=== PATIENT | male | born 1940 | race Caucasian/White ===

== ENCOUNTER 2020-07-15 13:42 | Inpatient (IN) | payer MEDICARE, OTHER, SELFPAY ==
[2020-07-15 14:04] VITALS: BP 129/65; PULSE 89; RESP 18; TEMP 36.8; O2SAT 96; BMI 23.1
[2020-07-15 15:02] VITALS: O2SAT 96
--- NOTE | 2020-07-15 18:29 | NURSING ---
and son aware of visitation hours and team on Tuesday
[2020-07-15 19:36] VITALS: BP 158/81; PULSE 84; RESP 18; TEMP 36.9; O2SAT 94
[2020-07-15 21:36] VITALS: BP 158/81; PULSE 84
[2020-07-15] MEDS: Pregabalin 75 MG Capsule PO (21:36)
[2020-07-15] MEDS: Acetaminophen 325 MG Tablet 650 MG PO (21:36)
[2020-07-15] MEDS: Metoprolol(XL)Succ 50 MG Tablet PO (21:36)
[2020-07-15 22:00] VITALS: PULSE 18; RESP 16; O2SAT 94
--- NOTE | 2020-07-15 22:08 | HP.PCM_ITS ---
HPI - General General Date of Admission: 07/15/20 HPI Narrative 07/07/2020 DEAN ROY, is a 80 Male with below past medical history hospitalized at [facility] with chronic subdural hematoma. He had fall, had progressive expressive aphasia over the past 6 weeks, right leg weakness. 07/12/2020 Neurosurgery performed left craniotomy for subdural hematoma with placement of subdural drain. Post operative course unknown due to limited medical records. 07/15/2020 Admit to for > 3 hours rehabilitation, strengthening, prior to discharge home with . [facility] Medical History (Updated 07/15/20 @ 22:[address] Cameron Villa MD) Chronic kidney disease Concussion Fall Gastroenteritis Hypertension Home Medications acetaminophen [Tylenol] 650 mg PO Q6H PRN PRN 07/15/20 [History Last Taken U nknown] cholecalciferol (vitamin D3) [Vitamin D3] 1,000 unit PO DAILY 07/15/20 [History Last Taken Unknown] clonazepam [Klonopin] 1 mg PO QHS PRN PRN 07/15/20 [History Last Taken Unknown] hydrocodone-acetaminophen [Lyme] 1 tab PO Q6H PRN 07/15/20 [History Last Taken Unknown] ketorolac [Acular] 1 drp OPHTHALMIC (EYE) BID PRN PRN 07/15/20 [History Last Taken Unknown] losartan-hydrochlorothiazide [Hyzaar] 1 tab PO DAILY 07/15/20 [History Last Taken Unknown] metoprolol succinate 50 mg PO BID 07/15/20 [History Last Taken Unknown] multivitamin 1 tab PO DAILY 07/15/20 [History Last Taken Unknown] potassium chloride [Micro-K] 10 meq PO DAILY 07/15/20 [History Last Taken Unknown] pregabalin [Lyrica] 75 mg PO BID 07/15/20 [History Last Taken Unknown] Allergy/AdvReac Type Severity Reaction Status Date / Time doxycycline Allergy Nausea/Vom/ Verified 07/15/20 14:37 Diarrhea pramipexole Allergy Nausea/Vom/ Verified 07/15/20 14:37 Diarrhea ropinirole Allergy Nausea/Vom/ Verified 07/15/20 14:37 Diarrhea tetracycline Allergy Nausea/Vom/ Verified 07/15/20 14:37 Diarrhea Family History (Updated 07/15/20 @ 15:27 by Ela Brandt) Mother Heart disease Father Heart disease Brother Colon cancer Surgical History (Updated 07/15/20 @ 15:25 by Ela Brandt) H/O cervical spine surgery H/O colectomy H/O hernia repair Hx of rotator cuff surgery Social History (Updated 07/15/20 @ 22:[address] Cameron Villa MD) adopted: No household members: spouse housing: house current occupational status: retired current occupation: Orthopedic surgeon. Smoking Status: Former smoker alcohol intake: current details: Previous alcoholic. ROS Constitutional Constitutional: Denies chills, fever(s) or weight gain ENT HEENT: Denies headache(s), nasal congestion or nasal discharge Cardiovascular Cardiovascular: Denies chest pain or palpitations Respiratory/Chest Respiratory/Chest: Denies cough, excessive phlegm production or shortness of breath with exertion Gastrointestinal Gastrointestinal: Denies abdominal pain, nausea or vomiting Genitourinary Genitourinary: Denies dysuria Musculoskeletal Musculoskeletal: Denies joint pain or joint swelling Integumentary Integumentary: Denies rash or wounds Neurologic Neurologic: Reports weakness; Denies numbness or tingling Psychiatric Psychiatric: Reports auditory hallucinations; Denies anxiety, depression, homicidal ideation or suicidal ideation Vital Signs Vital Signs Vital Signs: 07/15/20 14:04 07/15/20 15:02 07/15/20 16:40 Temperature 98.2 F Temperature Source Oral Pulse Rate 89 Pulse Strength Normal (2+) Respiratory Rate 18 Blood Pressure 129/65 H Blood Pressure Mean 86 Blood Pressure Source Monitor Blood Pressure Position Sitting Blood Pressure Location Left Arm Pulse Ox 96 96 Oxygen Delivery Method Room Air Room Air 07/15/20 19:36 07/15/20 20:33 07/15/20 21:36 Temperature 98.5 F Temperature Source Oral Pulse Rate 84 84 Pulse Strength Normal (2+) Respiratory Rate 18 Blood Pressure 158/81 H 158/81 H Blood Pressure Mean 106 Blood Pressure Source Monitor Blood Pressure Position Sitting Blood Pressure Location Left Arm Pulse Ox 94 Oxygen Delivery Method Room Air Physical Exam Const alert and oriented x3 General Appearance: cooperative HEENT normocephalic Eyes PERRL and EOMs intact bilaterally Neck supple, no JVD and no carotid bruits Resp normal respiratory effort, normal air movement and clear to auscultation bilaterally Cardio regular rate and regular rhythm GI normal to inspection, nondistended, normoactive bowel sounds, non-tender and non-distended Extremity normal capillary refill General Extremity: Negative for edema Skin no rashes or lesions noted General Skin Exam: no breakdown Psych affect normal Appearance: appropriate Assessment & Plan Assessment/Plan (1) Debility: Status: Acute Code(s): R53.81 - Other malaise (2) Fall: Status: Acute Code(s): W19.XXXA - Unspecified fall, initial encounter (3) Expressive aphasia: Status: Acute Code(s): R47.01 - Aphasia (4) Concussion: Status: Acute Code(s): S06.0X9A - Concussion with loss of consciousness of unspecified duration, initial encounter (5) Chronic subdural hematoma: Status: Chronic Code(s): I62.03 - Nontraumatic chronic subdural hemorrhage (6) Right leg weakness: Status: Acute Code(s): R29.898 - Other symptoms and signs involving the musculoskeletal system (7) Chronic kidney disease: Status: Chronic Code(s): N18.9 - Chronic kidney disease, unspecified (8) Hypertension: Status: Chronic Code(s): I10 - Essential (primary) hypertension (9) Neuropathic pain: Status: Acute Code(s): M79.2 - Neuralgia and neuritis, unspecified (10) Hypogonadism: Status: Acute (11) Erectile dysfunction: Status: Acute Code(s): N52.9 - Male erectile dysfunction, unspecified Plan: 80 year old male with below past medical history hospitalized for expressive aphasia, right leg weakness due to chronic subdural hematoma, underwent left craniotomy for subdural hematoma with placement of subdural drain, admitted to for > 3 hours daily of rehabilitation, strengthening, prior to discharge home with . * Debility - PT/OT. * Aphasia - ST. * Pain - Tylenol 650MG Q6H PRN, Hydrocodone 1 tablet Q6H PRN. * Bowel - Senna/colace 2 tablets BID, MOM 30ML daily PRN, Dulcolax 10MG [place] daily PRN. * Vitamin D deficiency - D3 1000IU daily. * Insomnia - Clonazepam 1MG QHS PRN. * Hypertension - Metoprolol succinate 50MG BID, Losartan 100MG daily. * Nutrition - MVI daily. * Hypokalemia - KCL 10MEQ daily. * Neuropathic pain - Lyrica 75MG BID.
[2020-07-16 06:04] LABS: Absolute Lymphocyte Count 1.05 X10^3/uL (0.83-4.51); Absolute Neutrophil Count 3.2 X10^3/uL (2.0-7.7); Basophil# 0.03 X10^3/uL; Basophil% 0.6 % (0-1); Eosinophil# 0.17 X10^3/uL; Eosinophils% 3.3 % (0-5); Hematocrit 43.9 % (40-54); Hemoglobin 14.8 g/dL (13.0-16.5); Lymphocyte # 1.05 X10^3/ul (0.83-4.51); Lymphocyte % 20.6 % (19-41); Mean Corp Hgb Conc 33.7 g/dL (32-36); Mean Corpuscular Hgb 32.2 pg (27.0-32.0); Mean Corpuscular Volume 95.6 fL (80-94); Mean Platelet Vol. 9.6 fl (6.2-12.0); Monocyte# 0.66 X10^3/uL; NRBC Flagged by Analyzer 0 % (0-5); Neutrophil # 3.17 X10^3/uL (2.7-7.7); Neutrophil % 62.3 % (47-70); Platelet Count 191 K/mm3 (150-450); RBC Distribution Width CV 12.5 % (11.6-14.6); RBC Distribution Width SD 43.8 fl (35.1-43.9); Red Blood Count 4.59 M/mm3 (4.6-6.2); White Blood Count 5.1 K/mm3 (4.4-11.0)
[2020-07-16 06:36] LABS: AST(SGOT) 14 U/L (15-37); Alanine Aminotransfer ALT/SGPT 19 U/L (16-61); Albumin, Serum 3.5 g/dL (3.2-5.0); Alkaline Phosphatase 73 U/L (45-117); Anion Gap 6 (5-15); BUN 20 mg/dL (7-18); BUN/Creat Ratio 23.3 RATIO (10-20); Calcium,Total 9.3 mg/dL (8.5-10.1); Chloride 102 mmol/L (98-107); Creatinine, Serum 0.86 mg/dL (0.70-1.30); EST Glomerular Filtration Rate 91 mL/min (>60); Est Glom Filt Rate - Afr Amer 111 mL/min (>60); Estimated Creatinine Clearance 70.79 ml/min; Globulin 3.5 g/dL (2.2-4.2); Glucose 102 mg/dL (74-106); Magnesium 2.1 mg/dL (1.6-2.6); Phosphorus 3.2 mg/dL (2.5-4.9); Potassium 3.6 mmol/L (3.5-5.1); Sodium Level 136 mmol/L (136-145)
[2020-07-16 07:35] VITALS: O2SAT 97
[2020-07-16 08:13] VITALS: PULSE 72
[2020-07-16] MEDS: hydroCHLOROthiazide 25 MG Tablet PO (08:13)
[2020-07-16] MEDS: Cholecalciferol (VIT D3) 25 MCG TABLET (1,000 UNITS) PO (08:13)
[2020-07-16] MEDS: Pregabalin 75 MG Capsule PO ×2 (08:13→20:58)
[2020-07-16] MEDS: Metoprolol(XL)Succ 50 MG Tablet PO ×2 (08:13→20:57)
[2020-07-16] MEDS: Losartan Potassium 100 MG Tablet PO (08:13)
[2020-07-16] MEDS: Potassium Chloride Oral Tablet 10 MEQ PO (08:13)
[2020-07-16] MEDS: Multivitamins,Therapeutic Tablet 1 TABLET PO (08:13)
[2020-07-16] MEDS: Acetaminophen 325 MG Tablet 650 MG PO ×3 (08:18→20:58)
[2020-07-16 08:40] VITALS: BP 145/80; PULSE 72; RESP 16; TEMP 36.6; O2SAT 94
--- NOTE | 2020-07-16 16:06 | NT.THERAPY_ITS ---
Nutrition Therapy Report - History Nutrition Services has been consulted to:: Manage nutrient details of diet order Current diet / nutrition support order:: Regular - Anthropometric Measurements Height:: 5 ft 9 in Weight:: 67.3 kg Body Mass Index (BMI):: 21.9 - Relevant Labs Relevant Labs:: RBC 4.59 M/mm3 (4.6-6.2) L 07/16/20 05:35 MCV 95.6 fL (80-94) H 07/16/20 05:35 MCH 32.2 pg (27.0-32.0) H 07/16/20 05:35 [place] % (Auto) 13.0 % (0-10) H 07/16/20 05:35 BUN 20 mg/dL (7-18) H 07/16/20 05:35 BUN/Creatinine Ratio 23.3 RATIO (10-20) H 07/16/20 05:35 AST 14 U/L (15-37) L 07/16/20 05:35 - Assessment Food / Nutrition-Related History:: Recently hospitalized at [facility] 07/07 w/ chronic subdural hematoma. States poor intake during hospitalization d/t prolonged NPO status- once progressed to PO foods states disliked taste of hospital food, would buy pt L&D meals, pt notes intake improvement to fair. Notes nausea d/t narcotics during this time w/ no emesis. States profuse diarrhea d/t on two stool softeners at [facility]. Pt notes return of good appetite/intake- states the food here is way better than at [facility]- consuming 75-100% of meals served since admin. States UBW -165-170 lbs. Notes unintentional wt loss x 9 days during recent hospitalization w/ UBW 165 lbs- CBW 156.7lbs indicating 10% wt loss- no wt hx per EMR. Pt attributes wt loss to prolonged NPO status & decreased intake during recent hospitalization. - Nutrition Diagnosis Problem / Etiology / Signs & Symptoms (PES):: Severe malnutrition in the context of acute disease/injury RT inadequate oral intake AEB unintentional wt loss 10% x 9 days, consuming </=50% energy intake compared to estimated energy needs >/=5 days. Evidence of Malnutrition Exists:: Yes Severe PCM:: Acute Illness - Nutrition Intervention Nutrition Prescription:: [id number] calories, 60-70 g protein - Food / Nutrient Delivery Interventions Nutrition support ordered as / adjusted to:: Regular diet. Ensure pudding w/ Lunch; Magic Cup w/ dinner. Nutrition education provided?: No - MNT Monitoring Further MNT monitoring and evaluation required?: Yes MNT Follow-up in:: 7-9 days
[2020-07-16 16:11] VITALS: BMI 21.9
--- NOTE | 2020-07-16 19:19 | PCM.RU.PYE ---
Admission Information Primary Diagnosis:: Chronic subdural hematoma status post craniotomy. Status Changes from Prescreening?: No changes Identified Actual Problem List:: Falls, Pain, ALteration in Cmfrt, Cognitve Impr/Memory Loss, Alteration in Sleep, Mobility Impaired and Self Care Deficit Potential Problem List:: DVT, Bleeding, Infection, UTI, Aspiration, Falls, Skin Integrity and Depression Risk of Complications DVT: RENATA Hose Bleeding: Monitor Lab Values Infection: Clinical Staff to Monitor for S/S of infection: and S/S of infection include fever, redness, warmth, etc. Urinary Tract Infection: Monitor for frequency, burning, discomfort, or incontinence. and Nursing will obtain urine sample for urinalysis and C&S when ordered. Aspiration: Clinical staff will monitor for coughing, drooling, congestion., Speech will evaluate swallowing and dsyphasia. and Nursing will monitor patient swallowing during meals. Falls: Patient will be evaluated for Fall Precautions and Patient will be placed on Fall Precautions as indicated per protocol. Skin Breakdown: Nursing will assess skin daily using assessment tool. and Nursing will place on Skin Breakdown Precautions as indicated. Pain: Clinical staff will assess patient's pain level per protocol., Medications will be given, if needed, and the pain level reassessed. and Other methods: Massage, distraction, decrease stimulus, etc. used PRN. Plan of Care Patient requires physician specializing in physical medicine and rehab oversight to provide close medical supervision of rehab issues including: Pain Management, Sleep Problems, Bowel and Bladder, Medical and co-morbidity Management, Rehabilitation Leadership and Coordination of treatment team Patient needs Physical Therapy: For a minimum of 1 hour and At least 5 out of 7 days Patient needs Physical Therapy to improve:: Mobility, Strengthening, Transfers, Stretching, ROM, Endurance, Stairs, Gait and Balance Patient needs Occupational Therapy: For a minimum of 1 hour and At least 5 out of 7 days Patient needs Occupational Therapy to improve ADL's incl.: Eating, Grooming, Bathing, Dressing, Toileting, Toilet transfers, Community Reintegration, Higher functioning activities, Household tasks, Adaptive Equipment and Other activities as determined Patient requires speech therapy: For a minimum of 1 hour and At least 5 out of 7 days Patient requires speech therapy for: Swallowing, Cognition, Language Skills and Compensatory Strategies Patient requires 24/7 Rehabilitation Nursing for: Pain Issues, Identifying and preventing risk factors, Assisting with ambulation, transfer, and all ADL's, Family teaching, Providing safe environment, Bowel and Bladder Issues, Skin integrity and Medication Management Patient needs [employer]or/ Case Management for: Discharge Planning, Arranging Home Equipment or Services and Family Interventions Patient needs Dietary and Nutrition Services for: Adequate Nutrition, Nutritional Supplements and Nutritional Education Goals Patient will remain: free from falls Patient will perform bed mobility at: Standby Assist. Patient will complete transfers from bed to chair at: Standby Assist. Patient will ambulate: 100 feet (300 feet) and with standby assist Patient will complete upper body dressing at: MOD I level of assist. Patient will complete lower body dressing at: MOD I level of assist. Patient will complete toileting at: Standby Assist. Patient will perform bathing at: Standby Assist. Patient will complete grooming at: Standby Assist. Patient will complete home management skills at: Standby Assist. Patient will achieve: 12 stairs and with standby assist Patient will have pain level of: of 3 or less Patient's skin will: remain intact and free from infection. Patient will receive: adequate nutrition. Discharge Planning Pt Prognosis for Sig. Practical Improv. w/in Reasonable Time: Good Estimated Length of stay (days): 15 Anticipated D/C Destination: Home with Home Health Was Preadmission Assessment Accurate?: Yes
[2020-07-16 20:28] VITALS: BP 113/59; PULSE 66; RESP 16; TEMP 36.5; O2SAT 95
[2020-07-16 20:48] VITALS: PULSE 72; RESP 96; O2SAT 94
[2020-07-16 20:57] VITALS: BP 113/59; PULSE 72
--- NOTE | 2020-07-17 05:44 | NURSING ---
Pt woke up with nausea and requested 4mg Zofran. Hospitalist, Dr Chavez, paged. N/O for 4mg Zofran Q6H/PRN.
[2020-07-17] MEDS: Ondansetron ODT 4 MG Tablet PO (05:49)
[2020-07-17 07:07] VITALS: O2SAT 95
[2020-07-17] MEDS: Pregabalin 75 MG Capsule PO ×2 (08:22→21:48)
[2020-07-17] MEDS: Acetaminophen 325 MG Tablet 650 MG PO ×2 (08:22→20:13)
[2020-07-17 08:23] VITALS: PULSE 71
[2020-07-17] MEDS: Metoprolol(XL)Succ 50 MG Tablet PO ×2 (08:23→21:48)
[2020-07-17] MEDS: Multivitamins,Therapeutic Tablet 1 TABLET PO (08:23)
[2020-07-17] MEDS: Cholecalciferol (VIT D3) 25 MCG TABLET (1,000 UNITS) PO (08:23)
[2020-07-17] MEDS: hydroCHLOROthiazide 25 MG Tablet PO (08:23)
[2020-07-17] MEDS: Losartan Potassium 100 MG Tablet PO (08:23)
[2020-07-17] MEDS: Potassium Chloride Oral Tablet 10 MEQ PO (08:23)
[2020-07-17 08:41] VITALS: BP 149/73; PULSE 71; RESP 18; TEMP 36.7; O2SAT 93
[2020-07-17] MEDS: Senna/Docusate Sodium 1 Tablet 2 TABLET PO (09:17)
--- NOTE | 2020-07-17 19:30 | PN.TCU_ITS ---
Subjective Subjective: Patient seen, examined. He feels he is struggling. I reassured him he is on track and improving. He recalls the chronic subdural hematoma occurred 6 weeks after fall with concussion. He developed right foot slap, expressive aphasia, and did not realize what was going on until he saw his sterile proc tech who sent him to ER. Dominick requested Trazodone for sleep, he states Melatonin has not worked in the past. Objective Data Objective Data Vital Signs: Vital Signs Temp Pulse Resp BP Pulse Ox 98.1 F 71 18 149/73 H 93 07/17/20 08:41 07/17/20 08:41 07/17/20 08:41 07/17/20 08:41 07/17/20 08:41 Oxygen Delivery Method Room Air Weight: 67.3 kg Body Mass Index (BMI) 21.9 Intake & Output: Intake and Output for Last 24 Hours 07/15/20 07/16/20 07/17/20 23:59 23:59 23:59 Intake Total 480 / 480 1160 / 1160 840 / 840 Output Total 450 / 450 950 / 950 250 / 250 Balance 30 / 30 210 / 210 590 / 590 Lab / Micro Data Result Diagrams: 07/16/20 05:35 07/16/20 05:35 Physical Exam Const alert and oriented x3 General Appearance: cooperative HEENT normocephalic Eyes PERRL and EOMs intact bilaterally Neck supple, no JVD and no carotid bruits Resp normal respiratory effort, normal air movement and clear to auscultation bilaterally Cardio regular rate and regular rhythm GI normal to inspection, nondistended, normoactive bowel sounds, non-tender and non-distended Extremity normal capillary refill General Extremity: Negative for edema Skin no rashes or lesions noted General Skin Exam: no breakdown Neuro Neuro Narrative: Right lower extremity weakness. Psych affect normal Appearance: appropriate Assessment & Plan Assessment/Plan (1) Debility: (2) Fall: (3) Expressive aphasia: (4) Concussion: (5) Chronic subdural hematoma: (6) Right leg weakness: (7) Chronic kidney disease: (8) Hypertension: (9) Neuropathic pain: (10) Hypogonadism: (11) Erectile dysfunction: PLAN: 80 year old male with below past medical history hospitalized for expressive aphasia, right leg weakness due to chronic subdural hematoma, underwent left craniotomy for subdural hematoma with placement of subdural drain, admitted to for > 3 hours daily of rehabilitation, strengthening, prior to discharge home with . * Debility - PT/OT. * Aphasia - ST. * Pain - Tylenol 650MG Q6H PRN, Hydrocodone 1 tablet Q6H PRN. * Bowel - Senna/colace 2 tablets BID, MOM 30ML daily PRN, Dulcolax 10MG [place] daily PRN. * Vitamin D deficiency - D3 1000IU daily. * Insomnia - Trazodone 50MG QHS, Clonazepam 1MG QHS PRN. * Hypertension - Metoprolol succinate 50MG BID, Losartan 100MG daily. * Nutrition - MVI daily. * Hypokalemia - KCL 10MEQ daily. * Neuropathic pain - Lyrica 75MG BID. Capacity Capacity Assessment Tool Can the patient make a choice & communicate that choice?: Yes Can the patient understand benefits, risks and alternatives?: Yes Can the patient make a logical, rational choice?: Yes Is the choice the patient makes consistent w/ their values?: Yes Is there an impending, emergent risk to the patient?: No Does the patient have an Advance Directive?: No Is there a Surrogate Available?: Yes i.e. HCPOA: Yes i.e. close relative (spouse, child, parent, sibling)?: Yes
[2020-07-17 19:55] VITALS: BP 147/73; PULSE 75; RESP 18; TEMP 37; O2SAT 96
[2020-07-17] MEDS: traZODone 50 MG Tablet PO (21:00)
[2020-07-17 21:47] VITALS: BP 134/71; PULSE 76
[2020-07-17 21:48] VITALS: BP 134/71; PULSE 76
[2020-07-18] MEDS: Ondansetron ODT 4 MG Tablet PO ×2 (02:13→20:51)
[2020-07-18] MEDS: Cholecalciferol (VIT D3) 25 MCG TABLET (1,000 UNITS) PO (07:57)
[2020-07-18] MEDS: Multivitamins,Therapeutic Tablet 1 TABLET PO (07:57)
[2020-07-18] MEDS: hydroCHLOROthiazide 25 MG Tablet PO (07:57)
[2020-07-18] MEDS: Losartan Potassium 100 MG Tablet PO (07:57)
[2020-07-18] MEDS: Potassium Chloride Oral Tablet 10 MEQ PO (07:57)
[2020-07-18 07:58] VITALS: PULSE 72
[2020-07-18] MEDS: Pregabalin 75 MG Capsule PO ×2 (07:58→20:52)
[2020-07-18] MEDS: Metoprolol(XL)Succ 50 MG Tablet PO ×2 (07:58→20:53)
[2020-07-18 08:07] VITALS: BP 119/71; PULSE 72; RESP 12; TEMP 37.1; O2SAT 94
[2020-07-18] MEDS: Acetaminophen 325 MG Tablet 650 MG PO ×2 (11:20→20:51)
--- NOTE | 2020-07-18 13:32 | PN.TCU_ITS ---
Subjective Subjective: Patient seen, examined. He slept well with Trazodone 50MG at bedtime last night. Objective Data Objective Data Vital Signs: Vital Signs Temp Pulse Resp BP Pulse Ox 98.7 F 72 12 119/71 94 07/18/20 08:07 07/18/20 08:07 07/18/20 08:07 07/18/20 08:07 07/18/20 08:07 Oxygen Delivery Method Room Air Weight: 67.3 kg Body Mass Index (BMI) 21.9 Intake & Output: Intake and Output for Last 24 Hours 07/16/20 07/17/20 07/18/20 23:59 23:59 23:59 Intake Total 1160 / 1160 840 / 840 480 / 480 Output Total 950 / 950 250 / 250 350 / 350 Balance 210 / 210 590 / 590 130 / 130 Lab / Micro Data Result Diagrams: 07/16/20 05:35 07/16/20 05:35 Physical Exam Const alert and oriented x3 General Appearance: cooperative HEENT normocephalic Eyes PERRL and EOMs intact bilaterally Neck supple, no JVD and no carotid bruits Resp normal respiratory effort, normal air movement and clear to auscultation bilaterally Cardio regular rate and regular rhythm GI normal to inspection, nondistended, normoactive bowel sounds, non-tender and non-distended Extremity normal capillary refill General Extremity: Negative for edema Skin no rashes or lesions noted General Skin Exam: no breakdown Neuro Neuro Narrative: Right lower extremity weakness. Psych affect normal Appearance: appropriate Assessment & Plan Assessment/Plan (1) Debility: (2) Fall: (3) Expressive aphasia: (4) Concussion: (5) Chronic subdural hematoma: (6) Right leg weakness: (7) Chronic kidney disease: (8) Hypertension: (9) Neuropathic pain: (10) Hypogonadism: (11) Erectile dysfunction: PLAN: 80 year old male with below past medical history hospitalized for expressive aphasia, right leg weakness due to chronic subdural hematoma, underwent left craniotomy for subdural hematoma with placement of subdural drain, admitted to for > 3 hours daily of rehabilitation, strengthening, prior to discharge home with . * Debility - PT/OT. * Aphasia - ST. * Pain - Tylenol 650MG Q6H PRN, Hydrocodone 1 tablet Q6H PRN. * Bowel - Senna/colace 2 tablets BID, MOM 30ML daily PRN, Dulcolax 10MG [place] daily PRN. * Vitamin D deficiency - D3 1000IU daily. * Insomnia - Trazodone 50MG QHS, Clonazepam 1MG QHS PRN. * Hypertension - Metoprolol succinate 50MG BID, Losartan 100MG daily. * Nutrition - MVI daily. * Hypokalemia - KCL 10MEQ daily. * Neuropathic pain - Lyrica 75MG BID. Capacity Capacity Assessment Tool Can the patient make a choice & communicate that choice?: Yes Can the patient understand benefits, risks and alternatives?: Yes Can the patient make a logical, rational choice?: Yes Is the choice the patient makes consistent w/ their values?: Yes Is there an impending, emergent risk to the patient?: No Does the patient have an Advance Directive?: No Is there a Surrogate Available?: Yes i.e. HCPOA: Yes i.e. close relative (spouse, child, parent, sibling)?: Yes
[2020-07-18] MEDS: traZODone 50 MG Tablet PO (20:52)
[2020-07-18 20:53] VITALS: BP 125/72; PULSE 66
[2020-07-18 22:00] VITALS: BP 125/72; PULSE 66; RESP 12; TEMP 36.8; O2SAT 93
[2020-07-19] MEDS: Acetaminophen 325 MG Tablet 650 MG PO ×2 (06:41→18:27)
[2020-07-19 08:55] VITALS: PULSE 78
[2020-07-19] MEDS: Metoprolol(XL)Succ 50 MG Tablet PO ×2 (08:55→20:49)
[2020-07-19] MEDS: Cholecalciferol (VIT D3) 25 MCG TABLET (1,000 UNITS) PO (08:56)
[2020-07-19] MEDS: Potassium Chloride Oral Tablet 10 MEQ PO (08:56)
[2020-07-19] MEDS: hydroCHLOROthiazide 25 MG Tablet PO (08:56)
[2020-07-19] MEDS: Losartan Potassium 100 MG Tablet PO (08:56)
[2020-07-19] MEDS: Multivitamins,Therapeutic Tablet 1 TABLET PO (08:57)
[2020-07-19] MEDS: Pregabalin 75 MG Capsule PO ×2 (08:59→20:48)
[2020-07-19 10:00] VITALS: BP 134/80; PULSE 72; RESP 18; TEMP 36.6; O2SAT 94
[2020-07-19] MEDS: Senna/Docusate Sodium 1 Tablet 2 TABLET PO (13:40)
[2020-07-19 20:00] VITALS: BP 124/70; PULSE 79; RESP 15; TEMP 36.6; O2SAT 94
[2020-07-19] MEDS: traZODone 50 MG Tablet PO (20:48)
[2020-07-19 20:49] VITALS: BP 124/70; PULSE 64
[2020-07-20] MEDS: Acetaminophen 325 MG Tablet 650 MG PO ×3 (06:23→21:13)
[2020-07-20] MEDS: Ondansetron ODT 4 MG Tablet PO ×2 (06:23→21:13)
[2020-07-20] MEDS: Losartan Potassium 100 MG Tablet PO (07:52)
[2020-07-20] MEDS: Potassium Chloride Oral Tablet 10 MEQ PO (07:52)
[2020-07-20] MEDS: Multivitamins,Therapeutic Tablet 1 TABLET PO (07:52)
[2020-07-20 07:53] VITALS: PULSE 74
[2020-07-20] MEDS: Metoprolol(XL)Succ 50 MG Tablet PO ×2 (07:53→21:13)
[2020-07-20] MEDS: hydroCHLOROthiazide 25 MG Tablet PO (07:53)
[2020-07-20] MEDS: Cholecalciferol (VIT D3) 25 MCG TABLET (1,000 UNITS) PO (07:53)
[2020-07-20] MEDS: Pregabalin 75 MG Capsule PO ×2 (07:55→21:14)
[2020-07-20 08:28] VITALS: BP 160/80; PULSE 74; RESP 18; TEMP 37.1; O2SAT 93
[2020-07-20] MEDS: Senna/Docusate Sodium 1 Tablet 2 TABLET PO (13:05)
--- NOTE | 2020-07-20 13:16 | NURSING ---
UP AND AMBULATED AROUND HALLS WITH STANDBY ASSIST, TOLERATED WELL.
[2020-07-20 20:04] VITALS: BP 136/82; PULSE 79; RESP 16; TEMP 36.6; O2SAT 96
[2020-07-20 21:13] VITALS: BP 136/82; PULSE 79
[2020-07-21] MEDS: Acetaminophen 325 MG Tablet 650 MG PO ×3 (05:09→20:30)
[2020-07-21] MEDS: Ondansetron ODT 4 MG Tablet PO ×2 (05:09→20:30)
[2020-07-21 07:11] VITALS: BP 129/85; PULSE 76; RESP 12; TEMP 36.9; O2SAT 93
[2020-07-21] MEDS: Potassium Chloride Oral Tablet 10 MEQ PO (07:52)
[2020-07-21 07:53] VITALS: PULSE 76
[2020-07-21] MEDS: Pregabalin 75 MG Capsule PO ×2 (07:53→21:21)
[2020-07-21] MEDS: Metoprolol(XL)Succ 50 MG Tablet PO ×2 (07:53→21:22)
[2020-07-21] MEDS: Cholecalciferol (VIT D3) 25 MCG TABLET (1,000 UNITS) PO (07:53)
[2020-07-21] MEDS: Losartan Potassium 100 MG Tablet PO (07:53)
[2020-07-21] MEDS: Multivitamins,Therapeutic Tablet 1 TABLET PO (07:53)
[2020-07-21] MEDS: hydroCHLOROthiazide 25 MG Tablet PO (07:53)
--- NOTE | 2020-07-21 10:09 | CASEMGMT ---
Social Work Team meeting held. Patient present as well as patient spouse, Sola. Patient approved 14 Medicare days with discharge to be on or before 07/29/2020. Patient to discharge to home with spouse. Patient to continue with further care and treatment on the Inpatient Rehab Unit. Social Work to continue to follow. Francisco BENITEZ, MARY ANN
--- NOTE | 2020-07-21 12:13 | PCM.PROGNOTE ---
Subjective Subjective: Marichuyzain is a 80 TO male with recent hx of a fall in April of 2020. Over the course of the next 6 weeks he developed expressive aphasia and R leg weakness. W/U reveaed a chronic SDH, more likely than not due to slow bleed related to the previous fall. On 07/12/20 at [facility] he underwent a craniotomy to drain the SDH. He was admitted to the [facility] rehab unit on 07/15/20 for > 3 hours of therapy daily to restore him at or near his prior level of function. He is normally very active and had been walking 3 miles a day. He lives with his Sola in a private home. He denies pain today. ST reports that he is having trouble with processing numbers and that this is new. He is doing well with PT/OT but, he still has an occasional LOB. He is ambulating without an AD but is CGA. He is afebrile Vital signs are stable He is maintaining appropriate oxygen saturation on room air. He was approved for 14 days of rehab by Medicare but, he feels like he wants to go home sooner than 14 days. 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 I reviewed Dr. Villa's H&P and all lab. He reports that he has had a lifelong problem with insomnia. He was started on Trazodone and took it for 3 nights but, he did not like the side effects and he felt drugged. He has been on both Xanax and Klonopin from his PCP in the past. His tells me that he had trouble with balance and seemed impaired on Klonopin. He has tried Melatonin with no improvement in sleep habits. He has trouble with not being able to turn his brain off when trying to sleep. He has been on either Lyrica or Gabapentin for 10 years, since the C6-7 cervical fusion. He is not sure why he is still taking this. If he takes the meds twice a day for a few days he finds it makes him very sleepy. He also has had essential tremor and there is a FH of this. He has had RLS and he tells me this started at a very young age. so did the problems sleeping. He feels that he has always been anxious. His mother was anxious. The benzodiazepines helped but, he had a hard time getting off of Xanax. Later went on Klonopin and that was started about 8 months ago. He also tells me that he really did not trip he had syncope. The Cardiac W/U was negative. He is on a beta kateryna for premature beats and this has helped to control this.......he is very bothered by these premature beats and he feels every one. He is on HCTZ and the BUN/CREAT ratio was high at admission to rehab. He told me that when no reason for syncope could be found he was told it was probably due to dehydration but, he is still on the HCTZ. I spent 52 minutes reviewing the chart, participating in TEAM meeting, talkin with the pt and then with his on the phone. Objective Data Objective Data Vital Signs: Vital Signs Temp Pulse Resp BP Pulse Ox 98.4 F 76 12 129/85 H 93 07/21/20 07:11 07/21/20 07:53 07/21/20 07:11 07/21/20 07:11 07/21/20 07:11 Oxygen Delivery Method Room Air Weight: 148 lb 5.938 oz Body Mass Index (BMI) 21.9 Intake & Output: Intake and Output for Last 24 Hours 07/19/20 07/20/20 07/21/20 23:59 23:59 23:59 Intake Total 1340 / 1340 1380 / 1380 360 / 360 Output Total 125 / 125 350 / 350 Balance 1215 / 1215 1380 / 1380 Lab / Micro Data Result Diagrams: 07/16/20 05:35 07/16/20 05:35 Physical Exam Const alert, oriented x3 and no apparent distress Constitutional Narrative: Having trouble with word finding. General Appearance: cooperative HEENT HEENT Narrative: The incision on the r side of the head from recent craniotomy is intact and healing. No sign of infection. There is a very small area of open skin where he scratched. Eyes PERRL and EOMs intact bilaterally Resp normal respiratory effort and clear to auscultation bilaterally Resp Narrative: good air exchange with no tachypnea and no conversational dyspnea Cardio regular rate, regular rhythm, S1 normal heart sound, S2 normal heart sound, no murmurs, no rub and no gallops GI normal to inspection, nondistended, normoactive bowel sounds and soft to palpation GI Narrative: No guarding with palpation Extremity no clubbing, cyanosis or edema Skin Skin Narrative: He has a rash on his back that is pruritic and started while he was at [facility]. He does not have a rash anywhere else. Psych denies homicidal ideation and denies suicidal ideation Psych Narrative: tremors increase when he is anxious. His tells me that last week he told her he was afraid to go to sleep because he thought someone may attack him.......possibly due to abrupt Benzodiazepine withdrawal. Up until May 14 he was a daily drinker. Appearance: appropriate Mood & Affect: anxious Assessment & Plan Assessment/Plan (1) Right leg weakness: PLAN: continue with PT and OT (2) Expressive aphasia: PLAN: continue therapy (3) Hypertension: PLAN: DC the HCTZ and continue to monitor the BP. (4) Chronic subdural hematoma: PLAN: S/P craniotomy to evacuate the hematoma at [facility] (5) Insomnia: PLAN: The insomnia is related to anxiety. The ETOH abuse (and hx of Xanax abuse) is also likely due to self medication for anxiety. He has been doing the same thing with Klonopin. We discussed treating the problem with a non-addictive medication and he is agreeable. Would like to try an SSRI or Buspar but, will allow the other medications to wash out prior to adding something else. I think he would benefit from psychotherapy to help control the anxiety. Need to taper the Lyrica off so will decrease the dose to once daily at . (6) Anxiety: PLAN: Possible SSRI or Buspar in a few days (7) Dehydration: PLAN: DC the HCTZ - I suspect this is the cause of the syncope. He had been outside shovelling and snow blowing for 4 hours and sweating and not drinking. (8) Hypokalemia: PLAN: he is on a potassium supplement because of SE of the HCTZ. Will likely be able to DC the potassium supplement after the HCTZ is out of his system. Will check a BMP and a Mag in the AM Visit Charges Inpatient E&M: 842[address] [facility] Hosp L3
[2020-07-21] MEDS: Hydrocortisone 2.5% Crm 1 APPLIC TOPICAL ×2 (14:32→21:21)
[2020-07-21 19:34] VITALS: BP 154/84; PULSE 93; RESP 18; TEMP 36.8; O2SAT 93
[2020-07-21 20:20] VITALS: BP 155/81; PULSE 75; RESP 16; O2SAT 96
--- NOTE | 2020-07-21 20:44 | NURSING ---
Addendum entered by Laurita Shields 07/21/20 20:53: BP 155/81 left arm, semi-fowlers, HR 75, SpO2 96% RA, Respirs 16. Pt c/o 3/10 headache behind left eye- requesting Tylenol and Zofran for mild nausea. Original Note: 2015 Received t/c from Pt's who is concerned about her . Pt's was talking with Pt on the phone and Pt reported trouble finding words to his and that he had trouble speaking today. Vitals obtained. Pt able to communicate clearly with this SN. RN aware and will continue to monitor.
[2020-07-21] MEDS: Dronabinol 2.5 MG Capsule PO (21:21)
[2020-07-21 21:22] VITALS: BP 155/81; PULSE 75
--- NOTE | 2020-07-22 03:47 | NURSING ---
Reviewed and agree with NUCLEAR DESIGN ENGINEER charting and documentation.
[2020-07-22] MEDS: Hydrocortisone 2.5% Crm 1 APPLIC TOPICAL ×3 (04:29→21:23)
[2020-07-22] MEDS: Acetaminophen 325 MG Tablet 650 MG PO ×3 (04:30→21:27)
[2020-07-22] MEDS: Ondansetron ODT 4 MG Tablet PO (04:30)
[2020-07-22 06:31] LABS: Anion Gap 5 (5-15); BUN 25 mg/dL (7-18); BUN/Creat Ratio 29.3 RATIO (10-20); Calcium,Total 9.1 mg/dL (8.5-10.1); Chloride 103 mmol/L (98-107); Creatinine, Serum 0.85 mg/dL (0.70-1.30); EST Glomerular Filtration Rate 92 mL/min (>60); Est Glom Filt Rate - Afr Amer 112 mL/min (>60); Estimated Creatinine Clearance 68.18 ml/min; Glucose 96 mg/dL (74-106); Magnesium 1.9 mg/dL (1.6-2.6); Potassium 3.8 mmol/L (3.5-5.1); Sodium Level 137 mmol/L (136-145)
[2020-07-22] MEDS: Potassium Chloride Oral Tablet 10 MEQ PO (08:21)
[2020-07-22] MEDS: Multivitamins,Therapeutic Tablet 1 TABLET PO (08:21)
[2020-07-22] MEDS: Cholecalciferol (VIT D3) 25 MCG TABLET (1,000 UNITS) PO (08:21)
[2020-07-22 08:22] VITALS: PULSE 67
[2020-07-22] MEDS: Losartan Potassium 100 MG Tablet PO (08:22)
[2020-07-22] MEDS: Metoprolol(XL)Succ 50 MG Tablet PO ×2 (08:22→21:23)
[2020-07-22 09:15] VITALS: BP 151/74; PULSE 67; RESP 18; TEMP 36.8; O2SAT 95
--- NOTE | 2020-07-22 11:55 | EX.PCM.PN.RE ---
Subjective Subjective: Afebrile Vital signs stable-systolic blood pressure has increased into the 150s consistently since hydrochlorothiazide was discontinued. Heart rate is within normal limits. He is maintaining appropriate oxygen saturation on room air Adequate oral intake No problems reported by nursing. All labs from this morning was reviewed. BUN/creatinine ratio is elevated at 29.3. Hydrochlorothiazide was discontinued and he did not receive a dose this morning. He denies lightheadedness. Dominick tells me that he slept better than usual last night and did not feel hung over this morning. We will continue the Marinol. Denies STEPHEN, SOB, CP, calf pain. Objective Data Objective Data Vital Signs: Vital Signs Temp Pulse Resp BP Pulse Ox 98.3 F 67 18 151/74 H 95 07/22/20 09:15 07/22/20 09:15 07/22/20 09:15 07/22/20 09:15 07/22/20 09:15 Oxygen Delivery Method Room Air Weight: 148 lb 5.938 oz Body Mass Index (BMI) 21.9 Intake & Output: Intake and Output for Last 24 Hours 07/20/20 07/21/20 07/22/20 23:59 23:59 23:59 Intake Total 1380 / 1380 1122 / 1122 240 / 240 Output Total 350 / 350 Balance 1380 / 1380 772 / 772 240 / 240 Lab / Micro Data Result Diagrams: 07/16/20 05:35 07/22/20 05:38 Labs: Laboratory Results - last 24 hr 07/22/20 05:38 Sodium 137 Potassium 3.8 Chloride 103 Carbon Dioxide 29.0 Anion Gap 5 BUN 25 H Creatinine 0.85 Estim Creat Clear Calc 68.18 Est GFR (MDRD) Af Amer 112 Est GFR (MDRD) Non-Af 92 BUN/Creatinine Ratio 29.3 H Glucose 96 Calcium 9.1 Magnesium 1.9 Indicators for Scoring Admitted with or Primary Diagnosis of CVA/Stroke: No Hx of CVA/Stroke: No Physical Exam Const alert and oriented x3 General Appearance: cooperative HEENT Mouth: dry mucous membranes Neck supple Resp clear to auscultation bilaterally Cardio regular rate, regular rhythm, S1 normal heart sound, S2 normal heart sound, no murmurs and no gallops GI normal to inspection, nondistended, normoactive bowel sounds Extremity no clubbing, cyanosis or edema Skin Skin Narrative: the rash on the back is less pruritic now that he is on Hydrocortisone cream Neuro CN's II-XII intact bilaterally Neuro Narrative: still having some trouble with word finding Motor Exam: general weakness Psych Appearance: appropriate Mood & Affect: anxious Assessment & Plan Assessment/Plan (1) Chronic subdural hematoma: PLAN: Continue therapy (2) Debility: PLAN: Due to subdural hematoma and subsequent craniotomy to drain (3) Expressive aphasia: (4) Dehydration: PLAN: Encourage the patient to increase his fluid intake over the next few days until the hydrochlorothiazide has worked its way out of his system. (5) Anxiety: PLAN: Will discuss with him possibly trying BuSpar or an SSRI. (6) Insomnia: QUALIFIERS: Insomnia type: unspecified Qualified Code(s): G47.00 - Insomnia, unspecified PLAN: Marinol helped him to sleep last night and he wants to continue taking this. (7) Hypertension: QUALIFIERS: Hypertension type: essential hypertension Qualified Code(s): I10 - Essential (primary) hypertension PLAN: Start a clonidine patch Visit Charges Inpatient E&M: 27731 Subs Hosp L2
[2020-07-22 21:23] VITALS: BP 139/88; PULSE 83
[2020-07-22] MEDS: Pregabalin 75 MG Capsule PO (21:23)
[2020-07-22] MEDS: Dronabinol 2.5 MG Capsule PO (21:23)
[2020-07-22 21:44] VITALS: BP 139/88; PULSE 83; RESP 16; TEMP 36.8; O2SAT 98
[2020-07-23] MEDS: Acetaminophen 325 MG Tablet 650 MG PO ×3 (04:01→23:34)
[2020-07-23] MEDS: Ondansetron ODT 4 MG Tablet PO ×3 (04:01→23:34)
[2020-07-23] MEDS: Hydrocortisone 2.5% Crm 1 APPLIC TOPICAL ×3 (04:03→23:31)
[2020-07-23 07:10] VITALS: BP 135/81; PULSE 71; RESP 16; TEMP 36.8; O2SAT 93
[2020-07-23 08:14] VITALS: PULSE 71
[2020-07-23] MEDS: Losartan Potassium 100 MG Tablet PO (08:14)
[2020-07-23] MEDS: Psyllium 1 PACKET PO (08:14)
[2020-07-23] MEDS: Potassium Chloride Oral Tablet 10 MEQ PO (08:14)
[2020-07-23] MEDS: Metoprolol(XL)Succ 50 MG Tablet PO ×2 (08:14→23:33)
[2020-07-23] MEDS: Cholecalciferol (VIT D3) 25 MCG TABLET (1,000 UNITS) PO (08:14)
[2020-07-23] MEDS: Multivitamins,Therapeutic Tablet 1 TABLET PO (08:14)
--- NOTE | 2020-07-23 10:06 | PCM.PROGNOTE ---
Subjective Subjective Afebrile VSS-blood pressure on 07/22/2020 ranged from 139/88-151/74. Blood pressure this a.m. is 135/81 with a heart rate of 71. Maintaining appropriate oxygen saturation on RA Oral intake is less than 1000 cc yesterday Discussed with nursing - no problems that need addressed Reviewed the PT/OT/ST notes - He has an abnormal gait.....sometimes having a wide based stance and he slaps his feet down. He is walking without an AD. He has decreased arm swing on the R. He seems to be having more difficulty with word finding and even with sequencing of motor activities. Medication list reviewed. Denies STEPHEN, lightheadedness, visual disturbances. Objective Data Objective Data Vital Signs: Vital Signs Temp Pulse Resp BP Pulse Ox 98.3 F 71 16 135/81 H 93 07/23/20 07:10 07/23/20 08:14 07/23/20 07:10 07/23/20 07:10 07/23/20 07:10 Oxygen Delivery Method Room Air Weight: 147 lb 0.773 oz Body Mass Index (BMI) 21.9 Intake & Output: Intake and Output for Last 24 Hours 07/21/20 07/22/20 07/23/20 23:59 23:59 23:59 Intake Total 1122 / 1122 640 / 640 520 / 520 Output Total 350 / 350 150 / 150 Balance 772 / 772 640 / 640 370 / 370 Lab / Micro Data Result Diagrams: 07/16/20 05:35 07/22/20 05:38 Physical Exam Const alert and no apparent distress Constitutional Narrative: Having trouble with word finding. General Appearance: cooperative Eyes PERRL and EOMs intact bilaterally Neck supple and no JVD Resp normal respiratory effort and clear to auscultation bilaterally Resp Narrative: good air exchange with no tachypnea and no conversational dyspnea Cardio regular rate, regular rhythm, S1 normal heart sound, S2 normal heart sound, no murmurs and no gallops GI normal to inspection, nondistended, normoactive bowel sounds GI Narrative: No guarding with palpation Extremity no clubbing, cyanosis or edema Skin Skin Narrative: The pruritic rash on his back is no longer pruritic and the rash is fading Neuro CN's II-XII intact bilaterally Neuro Narrative: R side weakness arm>leg. Having increased trouble with word finding. Motor Exam: general weakness Psych denies homicidal ideation and denies suicidal ideation Psych Narrative: tremors increase when he is anxious. His tells me that last week he told her he was afraid to go to sleep because he thought someone may attack him.......possibly due to abrupt Benzodiazepine withdrawal. Up until May 14 he was a daily drinker. Appearance: appropriate Mood & Affect: anxious Assessment & Plan Assessment/Plan (1) Chronic subdural hematoma: PLAN: Continue therapy (2) Debility: PLAN: Due to subdural hematoma and subsequent craniotomy to drain (3) Expressive aphasia: PLAN: Will need to continue ST as an OP (4) Dehydration: PLAN: Encourage the patient to increase his fluid intake over the next few days until the hydrochlorothiazide has worked its way out of his system. (5) Anxiety: PLAN: Will discuss with him possibly trying BuSpar or an SSRI. (6) Insomnia: QUALIFIERS: Insomnia type: unspecified Qualified Code(s): G47.00 - Insomnia, unspecified PLAN: DC the Droabinol - possibly causing more difficulty with word finding (7) Hypertension: QUALIFIERS: Hypertension type: essential hypertension Qualified Code(s): I10 - Essential (primary) hypertension PLAN: Start a clonidine patch Visit Charges Inpatient E&M: 47334 Subs Hosp L2
--- NOTE | 2020-07-23 15:30 | CHAPLAIN ---
Type of Pastoral Visit _x__ Initial Visit ___ Follow-up Visit ___ On-call Visit ___ General Patient Visit ___ Spiritual Assessment ___ Family Conference ___ Bereavement ___ Rapid Response ___ Code Blue ___ Other (describe below) Pastoral Care Referral From ___ Patient ___ Family _x__ Nurse ___ Physician ___ Woodworking Shop Laborer ___ General Manager Food ___ Other (describe below) Sacrament/Intervention _x__ Active listening ___ Anointing ___ Sabianism ___ Bereavement ___ Communion ___ Guerita exploration ___ _x__ Life review _x__ Prayer ___ Reconciliation ___ Sacrament of Sick _x__ Supportive presence ___ Wedding ___ Other (describe below) Pastoral Comments
[2020-07-23 19:50] VITALS: BP 146/87; PULSE 76; RESP 16; TEMP 36.9; O2SAT 94
[2020-07-23] MEDS: Dronabinol 2.5 MG Capsule PO (23:32)
[2020-07-23] MEDS: Pregabalin 75 MG Capsule PO (23:32)
[2020-07-23 23:33] VITALS: BP 146/87; PULSE 76
[2020-07-24] MEDS: Acetaminophen 325 MG Tablet 650 MG PO ×2 (06:48→20:04)
[2020-07-24] MEDS: Hydrocortisone 2.5% Crm 1 APPLIC TOPICAL ×3 (06:49→19:48)
[2020-07-24 07:17] VITALS: BP 144/88; PULSE 79; RESP 18; TEMP 36.2; O2SAT 94
[2020-07-24] MEDS: Psyllium 1 PACKET PO (08:15)
[2020-07-24 08:16] VITALS: PULSE 79
[2020-07-24] MEDS: Multivitamins,Therapeutic Tablet 1 TABLET PO (08:16)
[2020-07-24] MEDS: Cholecalciferol (VIT D3) 25 MCG TABLET (1,000 UNITS) PO (08:16)
[2020-07-24] MEDS: Losartan Potassium 100 MG Tablet PO (08:16)
[2020-07-24] MEDS: Potassium Chloride Oral Tablet 10 MEQ PO (08:16)
[2020-07-24] MEDS: Metoprolol(XL)Succ 50 MG Tablet PO ×2 (08:16→20:04)
--- NOTE | 2020-07-24 11:17 | CASEMGMT ---
Social Work Spoke with patient about DC plans. Pt requesting to DC 07/26 home with . IDT agreeable. IDT recommending OP therapy. Pt agreeable and requesting [facility]. Referral made for PT/OT/ST. Scheduled appts. No DME needs. to transport. Plan: DC home with 07/26, [facility] PT/OT/ST ELI CallW
--- NOTE | 2020-07-24 14:09 | PCM.PROGNOTE ---
Subjective Subjective Afebrile Blood pressure since yesterday evening has ranged from 146/87-140 4/88. Heart rate is within normal limits. He is maintaining appropriate oxygen saturation on room air He denies dizziness, lightheadedness, chest pain, nausea/vomiting, palpitations. He has an occasional headache but it is relieved with Tylenol and they are better than they had been previously. He tells me that he is sleeping better with dronabinol and is getting 6 to 7 hours a night of sleep. He thinks this can be improved on. He denies any hangover effect with dronabinol. Objective Data Objective Data Vital Signs: Vital Signs Temp Pulse Resp BP Pulse Ox 97.2 F L 79 18 144/88 H 94 07/24/20 07:17 07/24/20 08:16 07/24/20 07:17 07/24/20 07:17 07/24/20 07:17 Oxygen Delivery Method Room Air Weight: 147 lb 0.773 oz Body Mass Index (BMI) 21.9 Intake & Output: Intake and Output for Last 24 Hours 07/22/20 07/23/20 07/24/20 23:59 23:59 23:59 Intake Total 640 / 640 1420 / 1420 760 / 760 Output Total 650 / 650 250 / 250 Balance 640 / 640 770 / 770 510 / 510 Lab / Micro Data Result Diagrams: 07/16/20 05:35 07/22/20 05:38 Physical Exam Const alert, oriented x3 and no apparent distress HEENT normocephalic HEENT Narrative: The incision is intact and there is no DC and no erythema. Eyes PERRL Neck no JVD Resp normal respiratory effort and clear to auscultation bilaterally Effort and Inspection: Negative for tachypneic or respiratory distress Auscultation: Negative for rales, rhonchi or wheezes Cardio regular rate, regular rhythm, S1 normal heart sound, S2 normal heart sound, no murmurs and no gallops GI normal to inspection, nondistended, normoactive bowel sounds Extremity no clubbing, cyanosis or edema Skin Skin Narrative: rash is much better on his back Neuro CN's II-XII intact bilaterally Neuro Narrative: decreased arm swing with ambulation on the R. He slaps his feet down when walking R>L Psych affect normal Appearance: appropriate Assessment & Plan Assessment/Plan (1) Dehydration: PLAN: HCTZ was discontinued on 07/21. He has been consciously trying to increase his water intake and his urine is less concentrated. Will recheck a BMP and MAG prior to planned DC tomorrow. (2) Anxiety: PLAN: BP is mildly elevated since the HCTZ was discontinued. This may be due to anxiety. I am not going to treat this at this time.....will ask him to check his BP's at home at different times of the day and keep a record. If it remains elevated will need to have the antihypertensive agents adjusted. I would try a Clonidine patch because it tends to allay anxiety and this may be enough to help him through the day. (3) Insomnia: QUALIFIERS: Insomnia type: unspecified Qualified Code(s): G47.00 - Insomnia, unspecified PLAN: DC the dronabinol and try Seroquel tonight. Seroquel has had some success in people with TBI in treating insomnia. (4) Neuropathic pain: PLAN: He is not c/o any neuropathic pain with the decrease in the Lyrica to 75 mg at HS only. Will continue the decreased dose and if he has no pain in the next week would DC the Lyrica. (5) Chronic subdural hematoma: PLAN: S/P craniotomy. Due to a syncopal episode resulting in a blow to the head. I suspect the syncope was due to orthostatic hypotension related to chronic dehydration due to HCTZ. (6) Expressive aphasia: PLAN: worse when he is fatigued and this is to be expected. Will need continued ST following DC. Visit Charges Inpatient E&M: 66555 Subs Hosp L2
[2020-07-24] MEDS: QUEtiapine 25 MG Tablet PO (19:47)
[2020-07-24 20:04] VITALS: BP 148/85; PULSE 73
[2020-07-24] MEDS: Pregabalin 75 MG Capsule PO (20:04)
[2020-07-24] MEDS: Ondansetron ODT 4 MG Tablet PO (20:05)
[2020-07-24 22:00] VITALS: BP 148/85; PULSE 73; RESP 16; TEMP 36.7; O2SAT 96
[2020-07-25 06:03] LABS: Anion Gap 4 (5-15); BUN 20 mg/dL (7-18); BUN/Creat Ratio 24.8 RATIO (10-20); Calcium,Total 8.9 mg/dL (8.5-10.1); Chloride 109 mmol/L (98-107); Creatinine, Serum 0.81 mg/dL (0.70-1.30); EST Glomerular Filtration Rate 98 mL/min (>60); Est Glom Filt Rate - Afr Amer 119 mL/min (>60); Estimated Creatinine Clearance 70.91 ml/min; Glucose 96 mg/dL (74-106); Magnesium 2.2 mg/dL (1.6-2.6); Potassium 3.9 mmol/L (3.5-5.1); Sodium Level 141 mmol/L (136-145)
[2020-07-25] MEDS: Hydrocortisone 2.5% Crm 1 APPLIC TOPICAL (06:36)
[2020-07-25] MEDS: Ondansetron ODT 4 MG Tablet PO ×2 (06:36→21:26)
[2020-07-25] MEDS: Acetaminophen 325 MG Tablet 650 MG PO ×3 (06:36→21:16)
[2020-07-25 07:31] VITALS: BP 144/76; PULSE 70; RESP 16; TEMP 36.6; O2SAT 94
[2020-07-25 09:15] VITALS: PULSE 76
[2020-07-25] MEDS: Losartan Potassium 100 MG Tablet PO (09:15)
[2020-07-25] MEDS: Cholecalciferol (VIT D3) 25 MCG TABLET (1,000 UNITS) PO (09:15)
[2020-07-25] MEDS: Potassium Chloride Oral Tablet 10 MEQ PO (09:15)
[2020-07-25] MEDS: Metoprolol(XL)Succ 50 MG Tablet PO ×2 (09:15→21:17)
[2020-07-25] MEDS: Psyllium 1 PACKET PO (09:15)
[2020-07-25] MEDS: Multivitamins,Therapeutic Tablet 1 TABLET PO (09:15)
[2020-07-25 19:23] VITALS: BP 156/89; PULSE 68; RESP 16; TEMP 37.2; O2SAT 96
[2020-07-25 21:17] VITALS: BP 156/89; PULSE 68
[2020-07-25] MEDS: Pregabalin 75 MG Capsule PO (21:17)
[2020-07-25] MEDS: QUEtiapine 25 MG Tablet PO (21:17)
[2020-07-26 07:22] VITALS: BP 145/77; PULSE 69; RESP 16; TEMP 36.6; O2SAT 94
[2020-07-26] MEDS: Acetaminophen 325 MG Tablet 650 MG PO (07:33)
[2020-07-26] MEDS: Cholecalciferol (VIT D3) 25 MCG TABLET (1,000 UNITS) PO (07:34)
[2020-07-26] MEDS: Losartan Potassium 100 MG Tablet PO (07:34)
[2020-07-26] MEDS: Multivitamins,Therapeutic Tablet 1 TABLET PO (07:35)
[2020-07-26] MEDS: Potassium Chloride Oral Tablet 10 MEQ PO (07:35)
[2020-07-26 07:36] VITALS: PULSE 72
[2020-07-26] MEDS: Metoprolol(XL)Succ 50 MG Tablet PO (07:36)
--- NOTE | 2020-07-26 08:58 | PCM.DC ---
Discharge Instructions Diet Discharge Diet: Low fat / Low cholesterol Activity Discharge Activity: May Not Drive, May Shower and - (Do the exercises given to you by the therapists at least once a day. ) May resume sexual activity in: No Restrictions Weight Bearing Status: Full weight bearing Dressing / Incision Call your doctor if your incision/area has: Continuous Slow Oozing, Increased Pain/ Swelling, Increased Redness, Foul Smelling Discharge and Swelling at the incision site Call your doctor if you observe: Fever of 101 or Higher, Shortness of breath, Dizziness, Fainting spells, Swelling in the ankles, Chest pain, Increased palpitations (irregular heartbeat), Calf discomfort and Uncontrolled pain Follow Up Care Please Follow Up With: Dr. Aádn Fried-PCP When: 7-[address] Fried to do a BMP to check the potassium since you are no longer taking HCTZ or a potassium supplement. Test Results: Test results from this visit will be discussed in further detail at your follow-up appointment, if applicable. Pending Tests Upon Discharge: none Discharge Plan Admission Admit Date/Time: 07/15/20 13:42 Attending Provider: Cameron Villa Chi Primary Care Provider: Javed Fried Discharge Orders/Prescriptions Prescriptions: New quetiapine 25 mg Tablet 25 mg PO DAILY@2100 Qty: 30 RF: 0 losartan 100 mg Tablet 100 mg PO DAILY Qty: 30 RF: 0 pregabalin 75 mg Capsule 75 mg PO HS Qty: 1 RF: 0 buspirone 5 mg tablet 5 mg PO TID Qty: 90 RF: 0 Continued multivitamin Tablet 1 tab PO DAILY RF: 0 acetaminophen [Tylenol] 325 mg Tablet 650 mg PO Q6H PRN PRN (Reason: Pain) RF: 0 metoprolol succinate 50 mg Tablet Extended Release 24 Hr 50 mg PO BID RF: 0 ketorolac [Acular] 0.5 % Drops 1 drp OPHTHALMIC (EYE) BID PRN PRN (Reason: Dry Eyes) RF: 0 cholecalciferol (vitamin D3) [Vitamin D3] 25 mcg (1,000 unit) Tablet 1,000 unit PO DAILY RF: 0 Discontinued potassium chloride [Micro-K] 10 mEq Capsule, Extended Release 10 meq PO DAILY RF: 0 clonazepam [Klonopin] 1 mg Tablet 1 mg PO QHS PRN PRN (Reason: Anxiety) RF: 0 losartan-hydrochlorothiazide [Hyzaar] 100-25 mg Tablet 1 tab PO DAILY RF: 0 hydrocodone-acetaminophen [[place]] 7.5-325 mg Tablet 1 tab PO Q6H PRN (Reason: Pain) RF: 0 pregabalin [Lyrica] 75 mg Capsule 75 mg PO BID RF: 0 Referrals / Follow Up: Javed Fried MD [Primary Care Provider] - Disposition Disposition (needs filled in before D/C Order can be placed): Home, self care
--- NOTE | 2020-07-26 09:04 | DS.PCM_ITS ---
Providers Date of Admission: 07/15/20 Primary Care Physician: Dr. Javed Fried MD Reason For Visit: SUBDERAML HEMATOMA Diagnosis Discharge Diagnosis (1) Dehydration: Status: Acute Code(s): E86.0 - Dehydration (2) Anxiety: Status: Chronic Code(s): F41.9 - Anxiety disorder, unspecified (3) Insomnia: Status: Chronic Code(s): G47.00 - Insomnia, unspecified Qualifiers: Insomnia type: unspecified Qualified Code(s): G47.00 - Insomnia, unspecified (4) Neuropathic pain: Status: Chronic Code(s): M79.2 - Neuralgia and neuritis, unspecified (5) Chronic subdural hematoma: Status: Chronic Code(s): I62.03 - Nontraumatic chronic subdural hemorrhage Plan: resolved. He had a craniotomy to evacuate the blood. (6) Expressive aphasia: Status: Acute Code(s): R47.01 - Aphasia Medications at Discharge Home Medications acetaminophen [Tylenol] 650 mg PO Q6H PRN PRN 07/15/20 cholecalciferol (vitamin D3) [Vitamin D3] 1,000 unit PO DAILY 07/15/20 ketorolac [Acular] 1 drp OPHTHALMIC (EYE) BID PRN PRN 07/15/20 metoprolol succinate 50 mg PO BID 07/15/20 multivitamin 1 tab PO DAILY 07/15/20 buspirone 5 mg PO TID #90 tab 07/26/20 losartan 100 mg PO DAILY #30 tab 07/26/20 pregabalin 75 mg PO HS #1 cap 07/26/20 quetiapine 25 mg PO DAILY@2100 #30 tab 07/26/20 Hospital Course Operations None Procedures None Summary of Care Provided Minutes Spent on Discharge: 50 Hospital Course: 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 Over the course of the next 6 weeks he developed expressive aphasia and R leg weakness.? W/U revealed a chronic SDH, more likely than not due to slow bleed related to the previous fall.? On 07/12/20 at [facility] he underwent a craniotomy to drain the SDH.? He was admitted to the [facility] rehab unit on 07/15/20 for > 3 hours of therapy daily to restore him at or near his prior level of function.? He is normally very active and had been walking 3 miles a day.? He lives with his Sola in a private home.?He is a retired orthopedic surgeon. Deficits at admission to rehab included R side weakness, decreased R arm swing with ambulation, expressive aphasia and difficulty with processing numbers. Lab at admission to the hospital was significant for a BUN of 20 with a creatinine of 0.86. BUN/creatinine ratio was 23.3 and later janis to 29.3. He had been on Hyzaar for blood pressure control. He was also on a potassium supplement. We monitored his oral intake and it was frequently < 1200. HCTZ was discontinued and he was encouraged to increase his fluid intake which he has done. Lab 1 day prior to discharge showed a sodium of 141, potassium of 3.9, BUN of 20 and a creatinine of 0.81. The potassium supplement was discontinued. He no longer has lightheadedness and I suspect the syncope was related to dehydration/orthostatic hypotension. On the day prior to DC estephanie had ambulated 400 feet without an assistive device at contact-guard assist/standby assist. He was able to do 10 stands in 30 seconds without upper extremity assistance. He ascended and descended 12 steps with 2 handrails at contact-guard assist. He completed 5 steps without a handrail at contact-guard assist. He continues to lack arm swing in the right upper extremity with ambulation. He was independent with upper body and lower body dressing and distant supervision for bathing. He continues to have problems with word finding and numerical calculations. He sometimes has difficulty sequencing instructions to complete an activity. He will need outpa tient therapy following discharge from acute rehab. Dominick has had a chronic problem with insomnia and has tried multiple medications. Dronabinol helped him sleep but only for 5 to 6 hours at night. Medication was switched to Seroquel 25 mg at bedtime which has been very effective and he has been sleeping well and falls to sleep easily. He slept 8 hours the night prior to discharge. We discussed his chronic anxiety and troubles with alcohol overuse during his stay on rehab. He has been anxious since he was young and his mother had a problem with anxiety. The ETOH abuse was in part due to self medication to deal with anxiety and to help him sleep. He has stopped drinking. Klonopin was making him very drowsy and he was having problem with balance and that was discontinued at [facility]. He has been on Lyrica 75 mg BID for years and denied any neuropathic pain. The dose was decreased to 75 mg at HS and he has not had any recurrent neuropathic pain. He was instructed to continue the Lyrica at bedtime for one more week and then discontinue. We have tried to decrease/discontinue any medications that impair his thought processes in light of cognitive dysfunction. Prior to DC we discussed using Sertraline or Buspar for anxiety and he chose to take Buspar. We also discussed counselling for anxiety and he was on board with that suggestion. He is going to talk with his preacher. BP was mildly elevated at times but, following introduction of Seroquel and better sleep his BP on the day of DC was 145/77. I think with better control of anxiety his BP will improve. Dominick was discharged home on 07/26/2020 and will have PT/OT/ST at [facility]. He had no DME requirements at discharge. He will follow-up with Dr. Fried in 7 to 10 days and will need a BMP to check his potassium. Potassium off hydrochlorothiazide prior to discharge was 3.9. Dominick was urged to continue increased fluid intake and to keep his urine a pale yellow and not concentrated. Physical Exam Const alert, oriented x3, no apparent distress and well nourished General Appearance: cooperative and well developed HEENT normocephalic HEENT Narrative: Incision from the craniotomy is healed with no mario-incisional erythema, no purulent discharge and no increased warmth to touch. Eyes PERRL and EOMs intact bilaterally Neck supple Resp normal respiratory effort and clear to auscultation bilaterally Resp Narrative: No conversational dyspnea Effort and Inspection: Negative for tachypneic or uses accessory muscles Cardio regular rate, regular rhythm, S1 normal heart sound, S2 normal heart sound, no murmurs and no gallops GI normal to inspection, nondistended, normoactive bowel sounds and soft to palpation Extremity no clubbing, cyanosis or edema Skin Skin Narrative: The contact dermatitis on the back resolved with the use of Hydrocortisone cream. Neuro CN's II-XII intact bilaterally Neuro Narrative: He has mild R side weakness in the arm and the leg. Sometimes has increased tone in the RUE and he has decreased arm swing with ambulation. His stance with ambulation is wide based, karen when he fatigues, and his RLE swings out when he is tired also. He walks without an AD and has no LOB. No facial droop. Continues to have difficulty with word finding but, when given time he is able to come up with the words to express himself. He has an ess ential tremor that gets worse with increased anxiety. Speech: speech abnormal Psych Psych Narrative: Less anxious that at admission. Making good eye contact. speech is not pressured. No increase in essential tremor now when he is talking with me. ABG / Lab / Microbiology Data Result Diagrams: 07/16/20 05:35 07/25/20 05:31 Microbiology: Microbiology 07/24/20 15:10 Mucosa - Nose SARS-CoV-2 Antigen (Rapid) - Final D/C Instructions Discharge Diet: Low fat / Low cholesterol Discharge Activity: May Not Drive, May Shower and - (Do the exercises given to you by the therapists at least once a day. ) May resume sexual activity in: No Restrictions Weight Bearing Status: Full weight bearing Call your doctor if your incision/area has: Continuous Slow Oozing, Increased Pain/ Swelling, Increased Redness, Foul Smelling Discharge and Swelling at the incision site Call your doctor if you observe: Fever of 101 or Higher, Shortness of breath, Dizziness, Fainting spells, Swelling in the ankles, Chest pain, Increased palpitations (irregular heartbeat), Calf discomfort and Uncontrolled pain Additional Instructions: 1. The brain heals slowly so even though you are anxious to get back to your baseline you must be patient. You have done very well with therapy in rehab and I have no doubt you will continue to improve with OP therapy. Give yourself time to heal. 2. You have dealt with anxiety and insomnia for a very long time.......sometimes not in a healthy way. I am giving you a prescription for Buspar for anxiety. Start out taking 1 tab twice a day and if you have no side effects and you are still experiencing anxious moments increase to 3 tabs a day. Buspar does not work PRN and you must consistently take it 2-3 times a day for it to help you. discuss this with Dr. Fried because there is a higher dose if needed. Please talk to your boarding kennel or cattery operator or a psychologist about the anxiety and learn how to relax. 3. I do not think you need the Lyrica anymore. We decreased the dose to once a day at bedtime while you were in rehab. Take this for 1 more week and then discontinue. If the neuropathic pain comes back you can restart it at once a day......if it does not come back then just stay off Lyrica. I have a philosophy that less medication is better......karen as you get older. Medications that impair cognition/judgement or make you drowsy can get you in to trouble. They increase falls and impair your ability to think. 4. It has been a pleasure meeting you Dominick. I enjoyed talking with you. If you have any questions after you leave or I can help you in any way please call me......even if you just want to talk about the anxiety. Cell is [phone] and office is [phone]. Pending Tests Upon Discharge: none Please Follow Up With: Dr. Adán Fried-PCP When: 7-[address] Fried to do a BMP to check the potassium since you are no longer taking HCTZ or a potassium supplement. Meaningful Use Info Meaningful Use Diagnoses (Choose all that apply): None applicable Discharge Plan Admission Admit Date/Time: 07/15/20 13:42 Primary Reason for Your Visit: Disability due to SDH/craniotomy. Attending Provider: Cameron Villa Chi Primary Care Provider: Javed Fried Discharge Orders/Prescriptions Prescriptions: New quetiapine 25 mg Tablet 25 mg PO DAILY@2100 Qty: 30 RF: 0 losartan 100 mg Tablet 100 mg PO DAILY Qty: 30 RF: 0 pregabalin 75 mg Capsule 75 mg PO HS Qty: 1 RF: 0 buspirone 5 mg tablet 5 mg PO TID Qty: 90 RF: 0 Continued multivitamin Tablet 1 tab PO DAILY RF: 0 acetaminophen [Tylenol] 325 mg Tablet 650 mg PO Q6H PRN PRN (Reason: Pain) RF: 0 metoprolol succinate 50 mg Tablet Extended Release 24 Hr 50 mg PO BID RF: 0 ketorolac [Acular] 0.5 % Drops 1 drp OPHTHALMIC (EYE) BID PRN PRN (Reason: Dry Eyes) RF: 0 cholecalciferol (vitamin D3) [Vitamin D3] 25 mcg (1,000 unit) Tablet 1,000 unit PO DAILY RF: 0 Discontinued potassium chloride [Micro-K] 10 mEq Capsule, Extended Release 10 meq PO DAILY RF: 0 clonazepam [Klonopin] 1 mg Tablet 1 mg PO QHS PRN PRN (Reason: Anxiety) RF: 0 losartan-hydrochlorothiazide [Hyzaar] 100-25 mg Tablet 1 tab PO DAILY RF: 0 hydrocodone-acetaminophen [[place]] 7.5-325 mg Tablet 1 tab PO Q6H PRN (Reason: Pain) RF: 0 pregabalin [Lyrica] 75 mg Capsule 75 mg PO BID RF: 0 Referrals / Follow Up: Javed Fried MD [Primary Care Provider] - Disposition Disposition (needs filled in before D/C Order can be placed): Home, self care
[2020-07-26 13:00] VITALS: BP 145/77; PULSE 68; RESP 16; TEMP 36.6; O2SAT 94
--- NOTE | 2020-07-26 13:00 | NURSING ---
Patient and aware of dc instruct.
== END 2020-07-26 13:00 | disposition home or self-care (01) | DRG 949 ==
PROVIDERS: Internal Medicine; Admitting Provider Family Medicine Geriatric Medicine; PCP Family Medicine; Visit Provider Family Medicine Geriatric Medicine
DX: S06.5X9D Traumatic subdural hemorrhage with loss of consciousness of unspecified duration, subsequent encounter (principal); R47.01 Aphasia; W19.XXXD Unspecified fall, subsequent encounter; I12.9 Hypertensive chronic kidney disease with stage 1 through stage 4 chronic kidney disease, or unspecified chronic kidney disease; N18.9 Chronic kidney disease, unspecified; Z79.899 Other long term (current) drug therapy; Z87.891 Personal history of nicotine dependence; F10.21 Alcohol dependence, in remission; M79.2 Neuralgia and neuritis, unspecified; E55.9 Vitamin D deficiency, unspecified; E87.6 Hypokalemia; N52.9 Male erectile dysfunction, unspecified; Z98.1 Arthrodesis status; F41.9 Anxiety disorder, unspecified
CPT/HCPCS: 36415; 80048; 80053; 83735; 84100; 85025; 87426; 92507; 92523; 97110; 97112; 97116; 97162; 97166; 97530; 97535; 97760; 97802